=== PATIENT | female | born 1955 | race Asian ===

== ENCOUNTER 2019-04-22 13:23 | Outpatient (CLI) | payer MEDICAID ==
--- NOTE | 2019-04-22 15:38 | Mammography Report ---
BILATERAL DIGITAL DIAGNOSTIC MAMMOGRAM WITH CAD LEFT COMPLETE BREAST ULTRASOUND INDICATION: Breast cancer survivor status post left partial mastectomy. She describes pain in the upp er outer left breast. TECHNIQUE: Digital bilateral mammographic imaging was performed. Complete ultrasound of all four (4) quadrants was performed. This examination was interpreted with the benefit of Computer-Aided Detecti on (CAD) analysis. COMPARISON: None available. [place] [facility] [place] FINDINGS: Breast Density: The breasts are mostly fatty. There is no evidence of dominant mass, suspicious calcifications or architectural distortion in eithe r breast. The left breast is smaller than the right with upper postsurgical scar. Ultrasound Findings: Complete sonographic evlauation of all 4 quadrants and retroareolar region was p erformed. Oval superficial solid heterogeneous hypoechoic mass with indistinct margins at 2:00 10 c m from the nipple correlates with the area of pain. It is relatively superficial and measures 1.7 x 1 .5 x 1.0 cm. Ultrasound of the left axilla demonstrated no suspicious lymph nodes. IMPRESSION: A suspicious left breast mass at 2:00 10 cm from the nipple. Recommend ultrasound-guided needle biopsy. Negative right breast. I discussed the findings and the recommendation for ultrasound guided needle biopsy of the left breas t with the patient at the time of the examination. BI-RADS Category 4: Suspicious for Malignancy. A "normal" or negative report should not discourage follow up or biopsy of a clinically significant f inding. A written summary of these findings will be mailed to the patient. The patient will be entered into a mammography reporting system which will generate a reminder letter for the patient's next appointmen t at the appropriate interval. FURTHER INFORMATION: According to the [employer], yearly mammograms are recommend ed starting at age 40 and continuing as long as a woman is in good health. Breast MRI is recommended for women with an approximately 20-25% or greater lifetime risk of breast cancer, including women wi th a strong family history of breast or ovarian cancer and women who have been treated for Hodgkin's disease. Signer Name: Quentin Reilly MD Signed: 04/22/2019 3:33 PM Workstation Name: [id number]
== END 2019-04-22 13:24 | disposition home or self-care (01) ==
LOC: MAMMO 13:23
PROVIDERS: ATTEND Internal Medicine
DX: C50.412 Malignant neoplasm of upper-outer quadrant of left female breast (principal); I10 Essential (primary) hypertension; K21.9 Gastro-esophageal reflux disease without esophagitis; M19.90 Unspecified osteoarthritis, unspecified site; E11.9 Type 2 diabetes mellitus without complications; F32.9 Major depressive disorder, single episode, unspecified; Z79.899 Other long term (current) drug therapy; Z87.891 Personal history of nicotine dependence
CPT/HCPCS: 77066

== ENCOUNTER 2019-05-22 08:51 | Outpatient (CLI) | payer MEDICAID ==
--- NOTE | 2019-05-22 10:34 | Ultrasound Report ---
ULTRASOUND-GUIDED NEEDLE CORE BIOPSY LEFT BREAST WITH CLIP PLACEMENT CLINICAL: Status post left partial mastectomy and a superficial left breast mass at 2:00 10 cm from t he nipple identified only by ultrasound. FINDINGS: The procedure was explained to the patient and informed consent was obtained. Ultrasound demonstrated the previously identified the previously described mass.. I marked the breast with a felt tip marker and a timeout was called. The skin was prepped with Chloro -Prep and anesthetized with 1% lidocaine. Needle core biopsy was performed through small dermatotomy using ultrasound guidance, 2% lidocaine wi th epinephrine for deep anesthesia and a 14-gauge Achieve biopsy device. 3 cores were obtained and pl aced in formalin. A clip was deployed within the lesion. The patient tolerated the procedure well and there were no apparent complications. Hemostasis was ach ieved with minimal effort and a sterile dressing was applied. A post procedure mammogram was not performed. She left the department in good condition and was given instructions for wound care and follow-up. IMPRESSION: Uncomplicated ultrasound guided needle core biopsy with clip placement left breast. Signer Name: Quentin Reilly MD Signed: 05/22/2019 10:30 AM Workstation Name: [id number]
== END 2019-05-22 08:52 | disposition home or self-care (01) ==
LOC: SPVWC 08:51
PROVIDERS: ATTEND Internal Medicine Hematology & Oncology
DX: C50.412 Malignant neoplasm of upper-outer quadrant of left female breast (principal); G43.909 Migraine, unspecified, not intractable, without status migrainosus; I25.10 Atherosclerotic heart disease of native coronary artery without angina pectoris; I10 Essential (primary) hypertension; G47.30 Sleep apnea, unspecified; E11.9 Type 2 diabetes mellitus without complications; F32.9 Major depressive disorder, single episode, unspecified; Z90.12 Acquired absence of left breast and nipple; Z79.899 Other long term (current) drug therapy; Z79.4 Long term (current) use of insulin; Z79.82 Long term (current) use of aspirin; Z98.42 Cataract extraction status, left eye; Z98.51 Tubal ligation status; Z98.890 Other specified postprocedural states; Z85.89 Personal history of malignant neoplasm of other organs and systems
CPT/HCPCS: 88305

== ENCOUNTER 2019-06-02 10:53 | Day surgery (SDC) | payer MEDICAID ==
[2019-06-02] MEDS ORDERED: NACL 0.9% 1000 ML 1,000 ML IV SCH (14:00)
--- NOTE | 2019-06-02 14:29 | Anesthesia Day of Surgery ---
Anesthesia Day of Surgery - Day of Surgery Patient Examined: Yes Patient H&P Reviewed: Yes Patient is NPO: Yes
--- NOTE | 2019-06-02 14:29 | Anesthesia Consultation ---
Anesthesia Consult and Med Hx Date of service: 06/02/19 - Airway Anesthetic Teeth Evaluation: Poor ROM Head & Neck: Adequate Mental/Hyoid Distance: Adequate Mallampati Class: Class II Intubation Access Assessment: Probably Good - Pulmonary Exam CTA: Yes - Cardiac Exam Cardiac Exam: RRR - Pre-Operative Health Status ASA Pre-Surgery Classification: ASA3 Proposed Anesthetic Plan: MAC - Pulmonary Hx Smoking: Yes (quit 1981) Hx Sleep Apnea: Yes (compliant with CPAP) - Cardiovascular System Hx Hypertension: Yes (took lisinopril this morning) Hx Heart Attack/AMI: No Hx Angina: Yes (recent CP; neg cards w/u per patient. Believe 2/2 to mastectomy scar tissue) Hx Percutaneous Transluminal Coronary Angioplasty (PTCA): No Hx Cardia Arrhythmia: No - Central Nervous System CVA: No Hx Psychiatric Problems: Yes - Gastrointestinal Hx Gastroesophageal Reflux Disease: Yes (controlled) - Endocrine Hx Renal Disease: No Hx Liver Disease: No Hx Insulin Dependent Diabetes: Yes - Other Systems Hx Cancer: Yes (hx breast ca) Hx Obesity: Yes
[2019-06-02] MEDS ORDERED: DIPRIVAN 10 MG/ML IV ONE ×2 (15:02→15:03)
[2019-06-02] MEDS ORDERED: XYLOCAINE 2% INFILTRATI ONE (15:03)
--- NOTE | 2019-06-02 16:40 | Operative Report ---
Operative Report Operative Report: Procedure: Colonoscopy with Snare Polypectomy, Submucosal injection with elevation of colon polyp, Hot Biopsy Polypectomy and Polyp Ablation. Attending physician: German Teresa M.D. Key Punch Operator: German Teresa M.D. Indication: Patient is a 64-year-old female who presents for screening colono scopy. Patient has a personal history of colon polyps. This colonoscopy serves to evaluate patient so that treatment may be directed based on the findings. Consent: Informed consent was obtained after advising the patient and family regarding nature of this procedure, its indications, potential benefits as well as possible complications including but not limited to bleeding perforation and adverse reaction to medication, infection as well as other cardiopulmonary complications. An informed written and verbal consent was then obtained after due opportunity was provided for questions and answers. Monitoring: Patient was monitored continuously with pulse oximetry and electrocardiographic recordings as well as blood pressure recordings. Vital signs remained stable throughout this procedure with no untoward events. Preoperative assessment: Patient was assessed immediately prior to this procedure for capacity to tolerate monitored anesthesia care and moderate sedation as well as general anesthesia. Patient's ASA classification is 2, Mallampati class is 2, Hyomental distance is 3. Instrument: Olympus video colonoscope.: CF-HQ 190L Medications: Propofol given intravenously in divided doses. For details please refer to anesthesia records. Description of procedure: Patient was placed in the left lateral decubitus position after achieving sedation, a digital rectal examination was performed following which the colonoscope was introduced into the anal verge and advanced to the cecum which was identified by the cecal valve, the appendiceal orifice, as well as by the cecal strap and direct transillumination. The colonoscope was subsequently withdrawn with careful inspection of all mucosal surfaces. Patient tolerated this procedure well and was subsequently taken to the recovery room. The following findings were noted. Findings: The preparation was relatively poor with densely adherent thick liquid stool in various sections of the colon. The [place] colon prep scale score was about 4. The cecum otherwise was normal the ascending colon was normal . In the transverse colon, patient had a sessile 5-6 mm polyp which was removed by hot biopsy polypectomy and ablation. In the descending colon, patient had a flat 1 cm polyp. This was elevated with submucosal injection of saline and removed all by snare electrocautery and retrieved. There were a few scattered diverticula in the sigmoid colon and the descending colon. The rectum was normal. On the retroflex view at the anal verge, patient had internal hemorrhoids Impression: Transverse colon polyp status post hot biopsy polypectomy and ablation. Descending colon polyp status post snare polypectomy and submucosal injection Retained stool Diverticular disease of the sigmoid colon. Internal hemorrhoids. Plan: Follow pathology report. High-fiber diet. Consider repeat colonoscopy in one year due to poor colonoscopic preparation
--- NOTE | 2019-06-02 16:41 | Discharge Summary ---
Short Stay Discharge Plan Activity: advance as tolerated Weight Bearing Status: Weight Bear as Tolerated Diet: regular Follow up with: ARIA TRACY MD [Primary Care Provider] - 7 Days
[2019-06-02 17:00] VITALS: BP 118/54
== END 2019-06-02 10:54 | disposition home or self-care (01) ==
LOC: GIO 10:53
PROVIDERS: ATTEND Internal Medicine Gastroenterology
DX: Z12.11 Encounter for screening for malignant neoplasm of colon (principal); K63.5 Polyp of colon; K63.89 Other specified diseases of intestine; K57.30 Diverticulosis of large intestine without perforation or abscess without bleeding; K64.8 Other hemorrhoids; G43.909 Migraine, unspecified, not intractable, without status migrainosus; I20.8 Other forms of angina pectoris; I10 Essential (primary) hypertension; G47.30 Sleep apnea, unspecified; K21.9 Gastro-esophageal reflux disease without esophagitis; E66.9 Obesity, unspecified; M19.90 Unspecified osteoarthritis, unspecified site; E11.9 Type 2 diabetes mellitus without complications; E78.00 Pure hypercholesterolemia, unspecified; F32.9 Major depressive disorder, single episode, unspecified; Z79.899 Other long term (current) drug therapy; Z86.010 Personal history of colon polyps; Z79.82 Long term (current) use of aspirin; Z79.4 Long term (current) use of insulin; Z87.891 Personal history of nicotine dependence; Z98.42 Cataract extraction status, left eye; Z68.36 Body mass index [BMI] 36.0-36.9, adult; Z98.51 Tubal ligation status; Z85.3 Personal history of malignant neoplasm of breast; Z86.2 Personal history of diseases of the blood and blood-forming organs and certain disorders involving the immune mechanism
CPT/HCPCS: 45381; 45384; 45385; 82962; 88305; J2704; J7030